=== PATIENT | male | born 1945 | race Hispanic/Latino ===

== ENCOUNTER 2017-07-10 07:16 | Day surgery (SDC) | payer MEDICARE ==
[2017-07-03 10:15] VITALS: BMI 27.3
[2017-07-10] MEDS ORDERED: Propofol 10 mg/ml Inj (20 ML) ONE (08:51)
[2017-07-10] MEDS ORDERED: Sodium Chloride 0.9% 1,000 ML IV SCH (09:30)
[2017-07-10 10:13] VITALS: BP 135/67; PULSE 55; RESP 16; TEMP 98.2; O2SAT 98
== END 2017-07-10 10:45 | disposition home or self-care (01) ==
LOC: ENDO 07:16
PROVIDERS: ATTEND Specialist
DX: Z12.11 Encounter for screening for malignant neoplasm of colon (principal); K57.30 Diverticulosis of large intestine without perforation or abscess without bleeding; K64.8 Other hemorrhoids
CPT/HCPCS: 45378; J2704; J7040 ×2